=== PATIENT | male | born 1990 | race African-American/Black ===

== ENCOUNTER 2019-06-24 11:31 | Emergency (ER) | payer OTHER ==
[~2019-06-24] VITALS: Ht 185.4 cm; Wt 86.4 kg
[~2019-06-24 11:31] MED LIST: NAPR-985 PO
[2019-06-24 11:55] VITALS: BP 122/66; PULSE 56; RESP 18; Ht 185.4 cm; Wt 86.4 kg
[2019-06-24] MEDS ORDERED: IBUPROFEN 600 MG TAB PO ONE (12:30)
== END 2019-06-24 15:04 | disposition home or self-care (01) ==
LOC: FTE 11:31
DX: S93.602A Unspecified sprain of left foot, initial encounter (principal); J45.909 Unspecified asthma, uncomplicated; X50.1XXA Overexertion from prolonged static or awkward postures, initial encounter; Y92.9 Unspecified place or not applicable
CPT/HCPCS: 73610; 73630; Z7502; Z7610